=== PATIENT | female | born 1975 | race Caucasian/White ===

== ENCOUNTER 2024-05-11 07:31 | Day surgery (SDC) | payer OTHER, SELFPAY ==
[2024-05-11 07:43] VITALS: BP 142/82; PULSE 82; RESP 17; TEMP 36.4; O2SAT 97
[2024-05-11] MEDS: LACTATED RINGERS 1,000 ML 42 ML IV (07:56)
--- NOTE | 2024-05-11 08:55 | PM.HP.1 ---
History of Present Illness History of Present Illness Date Patient Seen: 05/11/24 Time Patient Seen: 08:55 Chief complaint: SDC Narrative: 48-year-old female here for colonoscopy. I reviewed my office note. No changes. Last rectal bleeding was yesterday. Small volume. PFSH Surgical History Hx of tubal ligation Social History Smoking Status: Former smoker alcohol intake: current Meds Home Medications and Allergies Home Medications Medication Instructions Recorded Confirmed Type sertraline 100 mg tablet 100 mg PO DAILY 05/11/24 05/11/24 History Allergies Allergy/AdvReac Type Severity Reaction Status Date / Time No Known Drug Allergies Allergy Verified 05/11/24 07:45 Review of Systems Review of Systems ROS: Yes All systems reviewed with the patient and are negative except as otherwise documented Exam Vital Signs (past 8 hours): - 05/11/24 07:43 Temperature 97.5 F L Pulse Rate 82 Respiratory Rate 17 Blood Pressure 142/82 H Pulse Oximetry 97 Oxygen Delivery Method Room Air Oxygen Delivery Method Room Air Const General: cooperative HENMT Head: normal to inspection Eyes General: appearance normal, both eyes and all related structures Neck Neck: normal visual inspection Chest Chest: normal inspection of the chest Resp Effort & Inspection: normal respiratory effort Cardio Rate: regular rate GI Inspection: normal to inspection Skin General: no rashes or lesions noted Neuro General: patient alert and patient awake Extrem General: normal to inspection and no pedal edema Psych Appearance: grossly normal Assessment & Plan Assessment & Plan narrative: 48-year-old female who has been experiencing longstanding intermittent rectal bleeding. She has never had colon cancer screening. Colonoscopy is therefore pursued today. Time-Based Coding :: [TOTAL MINUTES] spent with patient and on the chart (including review of chart, obtaining history, exam, reviewing outside data, placing orders, documenting exam and treatment plan, and counseling patient) on [DATE].
--- NOTE | 2024-05-11 08:56 | PM.PREOP ---
Pre-operative Note Interval Note History & Physical reviewed/Exam performed by Physician: Yes Changes to H&P: No ASA Class (for procedural sedation): II
--- NOTE | 2024-05-11 09:18 | PM.OP.COLON ---
Operative Date/Time/Diagnoses Date of procedure: 05/11/24 Time of procedure: 09:18 Pre-op diagnosis: Longstanding intermittent rectal bleeding Post-op diagnosis: same Procedure & Clinicians Study performed: Colonoscopy Same procedure as scheduled: Yes Indications: Longstanding intermittent rectal bleeding Surgeon: Eric Stanley Procedure Notes SCOAP/Timeout: Done Procedure in detail: After the risks and benefits were explained, written and verbal informed consent was obtained. The patient was brought into the procedure room and placed into the left lateral decubitus position. Please see anesthesia note for sedation details. Digital rectal examination was accomplished. The scope was introduced into the patient and advanced under direct visualization to the cecum as identified by the appendiceal orifice and ileocecal valve. The scope was slowly withdrawn to carefully examine the mucosa for any defects or lesions. Comprehensive imaging was accomplished throughout the rectum including the dentate line. The colon was decompressed, the scope was then removed from the patient who tolerated the procedure well. Pediatric colonoscope Bowel prep adequate Scope withdrawal time: 7 minutes Sedation minutes: 18 Specimen(s): none sent Complications: none Impression: Patient had grade 1 internal hemorrhoids with hypertrophied anal papillae. No proctitis. No colitis. The terminal ileum was interrogated and appeared visually normal. No significant polyps mass lesions or inflammatory features identified throughout. Endoscopic diagnosis 1. Grade 1 internal hemorrhoids with hypertrophied anal papillae 2. Otherwise visually normal colonoscopy Post-procedure Plan for aftercare: 1. Intermittent warm Epsom salt baths for hemorrhoidal care as needed. 2. Repeat colonoscopy for screening purposes 10 years. Disposition: PACU
[2024-05-11 09:19] VITALS: BP 96/58; PULSE 68; RESP 15; TEMP 36.1; O2SAT 98
[2024-05-11 09:24] VITALS: BP 113/71; PULSE 66; RESP 17; O2SAT 100
[2024-05-11 09:30] VITALS: BP 130/78; PULSE 68; RESP 19; O2SAT 100
[2024-05-11 09:38] VITALS: BP 133/84; PULSE 63; RESP 15; TEMP 36.1; O2SAT 100
== END 2024-05-11 09:45 | disposition home or self-care (01) ==
PROVIDERS: Family Provider Family Medicine; PCP Nurse Practitioner Family; Referring Provider Internal Medicine Gastroenterology; Visit Provider Internal Medicine Gastroenterology
PROC: 0DJD8ZZ Inspection of Lower Intestinal Tract, Via Natural or Artificial Opening Endoscopic (ICD-10-PCS; CPT 45378; principal; 2024-05-11 08:30)
DX: K62.5 Hemorrhage of anus and rectum (principal); K64.8 Other hemorrhoids; K64.4 Residual hemorrhoidal skin tags
CPT/HCPCS: 45378; J2704